=== PATIENT | female | born 1940 | race Caucasian/White ===

== ENCOUNTER 2020-12-13 00:28 | Inpatient (IN) ==
[2020-12-13] MEDS ORDERED: Melatonin 3 MG TABLET PO PRN (04:14)
[2020-12-13] MEDS ORDERED: Naloxone 0.4 MG/ML INJ IVP PRN (04:14)
[2020-12-13] MEDS ORDERED: Ondansetron 4 MG/2 ML VIAL IVP PRN (04:14)
[2020-12-13] MEDS ORDERED: *HR* HYDROcodone/Acet 5/325 mg TABLET PO PRN (04:14)
[2020-12-13] MEDS ORDERED: *HR* Promethazine 25 MG/ML VIAL IM PRN (04:14)
[2020-12-13] MEDS ORDERED: Acetaminophen 325 MG TABLET PO PRN (04:14)
[2020-12-13] MEDS ORDERED: Ringers Solution, Lactated 1,000 ML IVC SCH ×2 (04:15→11:15)
[2020-12-13] MEDS ORDERED: Benzonatate 100 MG CAPSULE PO PRN (04:19)
[2020-12-13] MEDS ORDERED: *HR* Enoxaparin 40 MG/0.4 ML SYRINGE SQ SCH (06:00)
[2020-12-13] MEDS ORDERED: Remdesivir 200 MG in 0.9 % Sodium Chloride 100 ML IVPB ONE ×2 (06:00→10:00)
[2020-12-13] MEDS ORDERED: Dexamethasone Sodium Phos/PF 10 MG/ML VIAL IVP SCH (09:00)
[2020-12-13] MEDS: *HR* Enoxaparin 40 MG/0.4 ML SYRINGE SQ SCH (10:08)
[2020-12-13 14:57] LABS: Troponin I 0.04 ng/mL (< 0.04)
[2020-12-13] MEDS: carvediloL 25 MG TABLET PO SCH (21:03)
[2020-12-14 01:12] LABS: Albumin 3.4 g/dL (3.5-5.7); Bilirubin,Direct 0.2 mg/dL (0.0-0.2); Bilirubin,Indirect 0.3 mg/dL (0.0-1.0); Bilirubin,Total 0.5 mg/dL (0.3-1.0); Globulin 3.5 g/dL (2.4-3.5); Total Protein 6.9 g/dL (6.4-8.9)
[2020-12-14 01:13] LABS: Alanine Aminotransferase 48 Units/L (7-52); Albumin 3.4 g/dL (3.5-5.7); Alkaline Phosphatase 51 Units/L (34-104); Aspartate Amino Transferase 79 Units/L (13-39); BUN/Creatinine Ratio 57 (6-26); Bilirubin,Total 0.5 mg/dL (0.3-1.0); Blood Urea Nitrogen 56 mg/dL (8-23); Calcium 8.8 mg/dL (8.6-10.3); Carbon Dioxide 23 mEq/L (23-29); Chloride 99 mEq/L (98-107); Globulin 3.5 g/dL (2.4-3.5); Glucose 176 mg/dL (70-105); Magnesium 1.8 mg/dL (1.6-2.6); Osmolality,Calculated 296 (280-300); Potassium 3.6 mEq/L (3.5-5.1); Sodium 133 mEq/L (136-145); Total Protein 6.9 g/dL (6.4-8.9); eGFR For African Americans > 60 (> 60); eGFR For Non-African Americans 54 (> 60)
[2020-12-14 01:15] LABS: Fibrinogen 375 mg/dL (169-393); Prothrombin Time 11.2 Seconds (9.4-12.1)
[2020-12-14 01:16] LABS: C-Reactive Protein 18 mg/L (Less than 10); Lactate Dehydrogenase 549 Units/L (140-271)
[2020-12-14 01:18] LABS: Basophils % 0.2 %; Hemoglobin 11.6 g/dL (11.5-15.4); Immature Granulocytes % 1.4 % (0-4); Lymphocytes # 1.1 K/mcL (0.6-4.6); Lymphocytes % 10.2 %; Mean Corpuscular HGB Conc 34.1 g/dL (31.6-35.5); Mean Corpuscular Hemoglobin 29.4 pg (28.0-33.3); Mean Corpuscular Volume 86.3 fL (83.0-100.0); Mean Platelet Volume 10.8 fL (9.4-12.4); Monocytes % 8.8 %; Neutrophils # 8.7 K/mcL (1.6-8.9); Platelet Count 222 K/mcL (140-400); Red Blood Count 3.94 M/mcL (3.82-4.97); Red Cell Distribution Width 13.5 % (11.5-14.5); Segmented Neutrophils % 79.4 %; White Blood Count 10.9 K/mcL (4.3-11.1)
[2020-12-14 01:22] LABS: D-Dimer 3069 ng/mLFEU (0-500)
[2020-12-14 01:40] LABS: Ferritin > 1500 ng/mL (10-120)
[2020-12-14] MEDS: *HR* Enoxaparin 40 MG/0.4 ML SYRINGE SQ SCH (05:23)
[2020-12-14] MEDS ORDERED: Remdesivir 100 MG in 0.9 % Sodium Chloride 100 ML IVPB SCH (06:00)
[2020-12-14] MEDS ORDERED: Furosemide 40 MG/4 ML VIAL IVP STA (08:38)
[2020-12-14] MEDS ORDERED: Furosemide 40 MG/4 ML VIAL IVP ONE (08:40)
[2020-12-14 08:46] LABS: ABG Base Excess 1 mEq/L (-2 to 3); ABG HCO3 25 mEq/L (21-27); ABG Oxygen Saturation 90 % (95-98); ABG PCO2 38 mmHg (35-45); ABG PH 7.42 pH Units (7.32-7.45); ABG PO2 58 mmHg (85-104); ABG TCO2 26 mEq/L (20-26)
[2020-12-14] MEDS: Remdesivir 100 MG in 0.9 % Sodium Chloride 100 ML IVPB SCH (08:46)
[2020-12-14] MEDS: Dexamethasone Sodium Phos/PF 10 MG/ML VIAL IVP SCH (08:46)
[2020-12-14] MEDS: Cholecalciferol (D-3) 1,000 UNIT (25MCG) TABLET PO SCH (08:47)
[2020-12-14] MEDS: carvediloL 25 MG TABLET PO SCH (08:48)
[2020-12-14] MEDS: Aspirin Enteric Coated 81 MG Tablet PO SCH (08:48)
[2020-12-14] MEDS ORDERED: NON-FORMULARY MEDICATION 1 EACH EACH (Ezetimibe [Zetia] 10 MG Tablet) PO SCH (09:00)
[2020-12-14] MEDS: levoFLOXacin 750 MG/150 ML 750 MG/150 ML BAG IVPB SCH (10:15)
[2020-12-14] MEDS: *HR* LORazepam 2 MG/ML VIAL IVP PRN ×2 (10:27→14:28)
[2020-12-14] MEDS ORDERED: *HR* LORazepam 2 MG/ML VIAL IVP PRN (15:21)
[2020-12-14] MEDS ORDERED: Isovue-370 500 ML BOTTLE IVP ONE (15:43)
[2020-12-14] MEDS ORDERED: Dexmedetomidine HCl 400 MCG/100 ML MLS IVC ONE (19:38)
[2020-12-14] MEDS: Dexmedetomidine HCl 400 MCG/100 ML MLS IVC SCH (19:47)
[2020-12-14] MEDS ORDERED: Artificial Tears SOLN 15 ML BOTTLE BOTH EYES PRN (20:20)
[2020-12-14] MEDS ORDERED: *HR* FentaNYL (PF) 100 MCG/2 ML VIAL ONE (20:24)
[2020-12-14] MEDS ORDERED: Midazolam HCl 50 MG/100 ML IV.SOLN IVC SCH (20:30)
[2020-12-14] MEDS ORDERED: FentaNYL (PF) 1,000 MCG/100 ML IV.SOLN IVC SCH (20:30)
[2020-12-14 22:17] LABS: ABG Base Excess 3 mEq/L (-2 to 3); ABG HCO3 25 mEq/L (21-27); ABG Oxygen Saturation 93 % (95-98); ABG PCO2 31 mmHg (35-45); ABG PH 7.51 pH Units (7.32-7.45); ABG PO2 59 mmHg (85-104); ABG TCO2 26 mEq/L (20-26); Blood Gas VT 480 cc
[2020-12-14] MEDS: Norepinephrine 4 MG/254 ML IV.SOLN IVC SCH ×2 (22:42→23:00)
[2020-12-14] MEDS: FentaNYL (PF) 1,000 MCG/100 ML IV.SOLN IVC SCH (22:42)
[2020-12-14] MEDS: Midazolam HCl 50 MG/100 ML IV.SOLN IVC SCH (22:43)
[2020-12-14] MEDS: Cisatracurium 200 MG in 0.9 % Sodium Chloride 180 ML IVC SCH (22:43)
[2020-12-15] MEDS: Artificial Tears SOLN 15 ML BOTTLE BOTH EYES SCH ×7 (00:08→23:06)
[2020-12-15] MEDS: Chlorhexidine Rinse 15 ML MOUTHWASH MM SCH ×3 (00:08→19:56)
[2020-12-15] MEDS: carvediloL 25 MG TABLET PO SCH ×3 (00:09→19:55)
[2020-12-15 04:40] LABS: Basophils % 0.3 %; Hematocrit 35.6 % (35.3-44.9); Hemoglobin 12.1 g/dL (11.5-15.4); Immature Granulocytes % 2.2 % (0-4); Lymphocytes % 8.4 %; Mean Corpuscular Hemoglobin 28.9 pg (28.0-33.3); Mean Corpuscular Volume 85.2 fL (83.0-100.0); Mean Platelet Volume 10.5 fL (9.4-12.4); Monocytes # 1.1 K/mcL (0.0-1.3); Monocytes % 9.2 %; Neutrophils # 9.6 K/mcL (1.6-8.9); Platelet Count 294 K/mcL (140-400); Red Blood Count 4.18 M/mcL (3.82-4.97); Red Cell Distribution Width 13.8 % (11.5-14.5); Segmented Neutrophils % 79.9 %
[2020-12-15 04:43] LABS: Albumin 3.5 g/dL (3.5-5.7); Bilirubin,Total 0.7 mg/dL (0.3-1.0); Calcium 9.4 mg/dL (8.6-10.3); Globulin 3.5 g/dL (2.4-3.5); Potassium 3.5 mEq/L (3.5-5.1)
[2020-12-15 04:44] LABS: Albumin 3.5 g/dL (3.5-5.7); Bilirubin,Direct 0.2 mg/dL (0.0-0.2); Bilirubin,Indirect 0.5 mg/dL (0.0-1.0); Bilirubin,Total 0.7 mg/dL (0.3-1.0); Globulin 3.6 g/dL (2.4-3.5); Total Protein 7.1 g/dL (6.4-8.9)
[2020-12-15 05:05] LABS: ABG Base Excess 1 mEq/L (-2 to 3); ABG HCO3 25 mEq/L (21-27); ABG Oxygen Saturation 97 % (95-98); ABG PCO2 34 mmHg (35-45); ABG PH 7.47 pH Units (7.32-7.45); ABG PO2 83 mmHg (85-104); ABG TCO2 26 mEq/L (20-26); Blood Gas VT 400 cc
[2020-12-15] MEDS: *HR* Enoxaparin 40 MG/0.4 ML SYRINGE SQ SCH ×2 (05:11→19:56)
[2020-12-15] MEDS: Aspirin Enteric Coated 81 MG Tablet PO SCH (08:52)
[2020-12-15] MEDS: Pantoprazole 40 MG VIAL IVP SCH (08:56)
[2020-12-15] MEDS: Dexamethasone Sodium Phos/PF 10 MG/ML VIAL IVP SCH (08:56)
[2020-12-15] MEDS: Furosemide 20 MG/2 ML VIAL IVP SCH (08:56)
[2020-12-15] MEDS: levoFLOXacin 750 MG/150 ML 750 MG/150 ML BAG IVPB SCH (08:57)
[2020-12-15] MEDS ORDERED: Furosemide 40 MG TABLET PO SCH (09:00)
[2020-12-15] MEDS: Cholecalciferol (D-3) 1,000 UNIT (25MCG) TABLET PO SCH (09:03)
[2020-12-15] MEDS: Remdesivir 100 MG in 0.9 % Sodium Chloride 100 ML IVPB SCH (10:50)
[2020-12-15] MEDS: Dexmedetomidine HCl 400 MCG/100 ML MLS IVC SCH (13:11)
[2020-12-15] MEDS: Norepinephrine 4 MG/254 ML IV.SOLN IVC SCH (13:11)
[2020-12-15] MEDS: FentaNYL (PF) 1,000 MCG/100 ML IV.SOLN IVC SCH (23:49)
[2020-12-16 03:33] LABS: ABG Base Excess 3 mEq/L (-2 to 3); ABG HCO3 29 mEq/L (21-27); ABG Oxygen Saturation 88 % (95-98); ABG PCO2 50 mmHg (35-45); ABG PH 7.38 pH Units (7.32-7.45); ABG PO2 56 mmHg (85-104); ABG TCO2 31 mEq/L (20-26); Blood Gas VT 400 cc
[2020-12-16] MEDS: Artificial Tears SOLN 15 ML BOTTLE BOTH EYES SCH ×6 (03:47→23:17)
[2020-12-16 04:47] LABS: Basophils # 0.1 K/mcL (0.0-0.2); Basophils % 0.5 %; Hematocrit 36.8 % (35.3-44.9); Hemoglobin 12.4 g/dL (11.5-15.4); Immature Granulocytes % 4.8 % (0-4); Lymphocytes # 0.9 K/mcL (0.6-4.6); Lymphocytes % 9.4 %; Mean Corpuscular HGB Conc 33.7 g/dL (31.6-35.5); Mean Corpuscular Hemoglobin 29.4 pg (28.0-33.3); Mean Corpuscular Volume 87.2 fL (83.0-100.0); Mean Platelet Volume 10.9 fL (9.4-12.4); Monocytes # 1.1 K/mcL (0.0-1.3); Neutrophils # 7.3 K/mcL (1.6-8.9); Platelet Count 259 K/mcL (140-400); Red Blood Count 4.22 M/mcL (3.82-4.97); Red Cell Distribution Width 13.8 % (11.5-14.5); Segmented Neutrophils % 74.3 %; White Blood Count 9.8 K/mcL (4.3-11.1)
[2020-12-16 04:57] LABS: Albumin 3.4 g/dL (3.5-5.7); Albumin/Globulin Ratio 0.9 (1.1-2.2); Bilirubin,Direct 0.2 mg/dL (0.0-0.2); Bilirubin,Indirect 0.4 mg/dL (0.0-1.0); Bilirubin,Total 0.6 mg/dL (0.3-1.0); Calcium 9.5 mg/dL (8.6-10.3); Globulin 3.6 g/dL (2.4-3.5); Potassium 3.6 mEq/L (3.5-5.1)
[2020-12-16] MEDS: Cisatracurium 200 MG in 0.9 % Sodium Chloride 180 ML IVC SCH ×2 (08:37→19:47)
[2020-12-16] MEDS: Norepinephrine 4 MG/254 ML IV.SOLN IVC SCH ×3 (08:38→19:48)
[2020-12-16] MEDS: Midazolam HCl 50 MG/100 ML IV.SOLN IVC SCH ×2 (08:38→19:48)
[2020-12-16] MEDS: carvediloL 25 MG TABLET PO SCH ×2 (08:39→19:48)
[2020-12-16] MEDS: levoFLOXacin 750 MG/150 ML 750 MG/150 ML BAG IVPB SCH (08:44)
[2020-12-16] MEDS: *HR* Enoxaparin 40 MG/0.4 ML SYRINGE SQ SCH ×2 (08:44→19:46)
[2020-12-16] MEDS: Chlorhexidine Rinse 15 ML MOUTHWASH MM SCH ×2 (08:45→19:46)
[2020-12-16] MEDS: Cholecalciferol (D-3) 1,000 UNIT (25MCG) TABLET PO SCH (08:45)
[2020-12-16] MEDS: Furosemide 20 MG/2 ML VIAL IVP SCH (08:45)
[2020-12-16] MEDS: Aspirin 81 MG TAB.CHEW GTUBE SCH (08:45)
[2020-12-16] MEDS: Pantoprazole 40 MG VIAL IVP SCH (08:45)
[2020-12-16] MEDS: Dexamethasone Sodium Phos/PF 10 MG/ML VIAL IVP SCH (08:45)
[2020-12-16] MEDS: FentaNYL (PF) 1,000 MCG/100 ML IV.SOLN IVC SCH ×3 (08:48→23:43)
[2020-12-16] MEDS: Remdesivir 100 MG in 0.9 % Sodium Chloride 100 ML IVPB SCH (10:44)
[2020-12-16] MEDS: Dexmedetomidine HCl 400 MCG/100 ML MLS IVC SCH (10:45)
[2020-12-16] MEDS: Insulin LISPRO 300 UNITS/3 ML VIAL SUBQ SCH ×2 (17:50→23:45)
[2020-12-17] MEDS: Artificial Tears SOLN 15 ML BOTTLE BOTH EYES SCH ×6 (03:09→23:25)
[2020-12-17] MEDS: Dexmedetomidine HCl 400 MCG/100 ML MLS IVC SCH ×2 (03:10→23:26)
[2020-12-17 04:12] LABS: Albumin 3.2 g/dL (3.5-5.7); Albumin/Globulin Ratio 0.9 (1.1-2.2); Bilirubin,Direct 0.1 mg/dL (0.0-0.2); Bilirubin,Indirect 0.4 mg/dL (0.0-1.0); Bilirubin,Total 0.5 mg/dL (0.3-1.0); Calcium 9.2 mg/dL (8.6-10.3); Globulin 3.5 g/dL (2.4-3.5); Potassium 3.2 mEq/L (3.5-5.1); Total Protein 6.7 g/dL (6.4-8.9)
[2020-12-17 04:36] LABS: Hematocrit 36.8 % (35.3-44.9); Mean Corpuscular HGB Conc 32.6 g/dL (31.6-35.5); Mean Corpuscular Volume 88.9 fL (83.0-100.0); Mean Platelet Volume 10.9 fL (9.4-12.4); Nucleated Red Blood Cells 0.1 /100 WBC (0); Platelet Count 263 K/mcL (140-400); Red Blood Count 4.14 M/mcL (3.82-4.97); Red Cell Distribution Width 13.8 % (11.5-14.5); White Blood Count 14.5 K/mcL (4.3-11.1)
[2020-12-17] MEDS: Insulin LISPRO 300 UNITS/3 ML VIAL SUBQ SCH ×5 (05:05→23:25)
[2020-12-17] MEDS: Norepinephrine 4 MG/254 ML IV.SOLN IVC SCH ×3 (05:06→22:11)
[2020-12-17 05:45] LABS: ABG Base Excess 3 mEq/L (-2 to 3); ABG HCO3 29 mEq/L (21-27); ABG Oxygen Saturation 92 % (95-98); ABG PCO2 50 mmHg (35-45); ABG PH 7.38 pH Units (7.32-7.45); ABG PO2 66 mmHg (85-104); ABG TCO2 31 mEq/L (20-26); Blood Gas Modality ASSIST CONTROL; Blood Gas VT 400 cc
[2020-12-17] MEDS: FentaNYL (PF) 1,000 MCG/100 ML IV.SOLN IVC SCH ×3 (06:04→20:33)
[2020-12-17 07:41] LABS: Lymphocytes # 1.7 K/mcL (0.6-4.6); Monocytes # 0.9 K/mcL (0.0-1.3); Neutrophils # 11.9 K/mcL (1.6-8.9); Platelet Estimate Normal (Normal)
[2020-12-17] MEDS: levoFLOXacin 750 MG/150 ML 750 MG/150 ML BAG IVPB SCH (08:13)
[2020-12-17] MEDS: *HR* Enoxaparin 40 MG/0.4 ML SYRINGE SQ SCH ×2 (08:13→19:42)
[2020-12-17] MEDS: Dexamethasone Sodium Phos/PF 10 MG/ML VIAL IVP SCH (08:14)
[2020-12-17] MEDS: Cholecalciferol (D-3) 1,000 UNIT (25MCG) TABLET PO SCH (08:14)
[2020-12-17] MEDS: Furosemide 20 MG/2 ML VIAL IVP SCH (08:14)
[2020-12-17] MEDS: Aspirin 81 MG TAB.CHEW GTUBE SCH (08:14)
[2020-12-17] MEDS: Chlorhexidine Rinse 15 ML MOUTHWASH MM SCH ×2 (08:15→19:41)
[2020-12-17] MEDS: Pantoprazole 40 MG VIAL IVP SCH (08:15)
[2020-12-17] MEDS: Remdesivir 100 MG in 0.9 % Sodium Chloride 100 ML IVPB SCH (10:30)
[2020-12-17] MEDS: carvediloL 25 MG TABLET PO SCH ×2 (11:18→19:42)
[2020-12-17] MEDS ORDERED: Potassium Chloride Elixir 20 MEQ/15 ML UDC GTUBE ONE ×4 (11:29→16:27)
[2020-12-17] MEDS: Cisatracurium 200 MG in 0.9 % Sodium Chloride 180 ML IVC SCH (22:11)
[2020-12-17] MEDS: Midazolam HCl 50 MG/100 ML IV.SOLN IVC SCH (22:11)
[2020-12-18] MEDS: FentaNYL (PF) 1,000 MCG/100 ML IV.SOLN IVC SCH ×4 (03:46→19:59)
[2020-12-18] MEDS: Insulin LISPRO 300 UNITS/3 ML VIAL SUBQ SCH ×6 (04:28→23:32)
[2020-12-18] MEDS: Artificial Tears SOLN 15 ML BOTTLE BOTH EYES SCH ×6 (04:28→23:32)
[2020-12-18 06:13] LABS: Basophils # 0.1 K/mcL (0.0-0.2); Basophils % 0.6 %; Hematocrit 37.5 % (35.3-44.9); Hemoglobin 12.2 g/dL (11.5-15.4); Immature Granulocytes % 4.9 % (0-4); Lymphocytes # 0.8 K/mcL (0.6-4.6); Lymphocytes % 4.1 %; Mean Corpuscular HGB Conc 32.5 g/dL (31.6-35.5); Mean Corpuscular Hemoglobin 29.4 pg (28.0-33.3); Mean Corpuscular Volume 90.4 fL (83.0-100.0); Mean Platelet Volume 11.3 fL (9.4-12.4); Monocytes # 0.8 K/mcL (0.0-1.3); Monocytes % 4.1 %; Platelet Count 260 K/mcL (140-400); Red Blood Count 4.15 M/mcL (3.82-4.97); Red Cell Distribution Width 13.7 % (11.5-14.5); Segmented Neutrophils % 86.3 %; White Blood Count 19.7 K/mcL (4.3-11.1)
[2020-12-18 06:25] LABS: ABG Base Excess 2 mEq/L (-2 to 3); ABG HCO3 27 mEq/L (21-27); ABG Oxygen Saturation 89 % (95-98); ABG PCO2 45 mmHg (35-45); ABG PH 7.39 pH Units (7.32-7.45); ABG PO2 57 mmHg (85-104); ABG TCO2 29 mEq/L (20-26); Blood Gas Modality ASSIST CONTROL; Blood Gas VT 400 cc
[2020-12-18 06:30] LABS: Alanine Aminotransferase 21 Units/L (7-52); Albumin 3.1 g/dL (3.5-5.7); Albumin/Globulin Ratio 0.9 (1.1-2.2); Alkaline Phosphatase 48 Units/L (34-104); Aspartate Amino Transferase 18 Units/L (13-39); BUN/Creatinine Ratio 66 (6-26); Bilirubin,Total 0.2 mg/dL (0.3-1.0); Blood Urea Nitrogen 60 mg/dL (8-23); Calcium 9.2 mg/dL (8.6-10.3); Carbon Dioxide 29 mEq/L (23-29); Chloride 105 mEq/L (98-107); Globulin 3.3 g/dL (2.4-3.5); Glucose 284 mg/dL (70-105); Osmolality,Calculated 319 (280-300); Sodium 141 mEq/L (136-145); Total Protein 6.4 g/dL (6.4-8.9); eGFR For African Americans > 60 (> 60); eGFR For Non-African Americans 60 (> 60)
[2020-12-18 06:31] LABS: Albumin 3.1 g/dL (3.5-5.7); Albumin/Globulin Ratio 0.9 (1.1-2.2); Bilirubin,Direct 0.1 mg/dL (0.0-0.2); Bilirubin,Indirect 0.4 mg/dL (0.0-1.0); Bilirubin,Total 0.5 mg/dL (0.3-1.0); Globulin 3.3 g/dL (2.4-3.5); Total Protein 6.4 g/dL (6.4-8.9)
[2020-12-18] MEDS: Norepinephrine 4 MG/254 ML IV.SOLN IVC SCH ×3 (07:49→23:16)
[2020-12-18] MEDS: *HR* Enoxaparin 40 MG/0.4 ML SYRINGE SQ SCH ×2 (08:11→19:59)
[2020-12-18] MEDS: Dexamethasone Sodium Phos/PF 10 MG/ML VIAL IVP SCH (08:12)
[2020-12-18] MEDS: Chlorhexidine Rinse 15 ML MOUTHWASH MM SCH ×2 (08:12→20:00)
[2020-12-18] MEDS: Cholecalciferol (D-3) 1,000 UNIT (25MCG) TABLET PO SCH (08:12)
[2020-12-18] MEDS: Pantoprazole 40 MG VIAL IVP SCH (08:12)
[2020-12-18] MEDS: Aspirin 81 MG TAB.CHEW GTUBE SCH (08:13)
[2020-12-18] MEDS: Furosemide 20 MG/2 ML VIAL IVP SCH (08:13)
[2020-12-18] MEDS: levoFLOXacin 750 MG/150 ML 750 MG/150 ML BAG IVPB SCH (08:44)
[2020-12-18 09:18] LABS: C-Reactive Protein 12 mg/L (Less than 10)
[2020-12-18] MEDS: carvediloL 25 MG TABLET PO SCH ×2 (11:24→20:00)
[2020-12-18] MEDS: Midazolam HCl 50 MG/100 ML IV.SOLN IVC SCH (15:44)
[2020-12-18] MEDS: Cisatracurium 200 MG in 0.9 % Sodium Chloride 180 ML IVC SCH (18:42)
[2020-12-18] MEDS: Dexmedetomidine HCl 400 MCG/100 ML MLS IVC SCH (19:58)
[2020-12-19 00:09] VITALS: TEMP 97.4
[2020-12-19 01:03] VITALS: O2SAT 78
[2020-12-19 02:03] VITALS: BP 96/49; PULSE 98
== END 2020-12-19 02:40 | disposition expired | DRG 207 ==
LOC: 2ANU → SUATTDRO 03:23 → 2NNU 12-14 17:54 → ICNU 12-14 22:35
PROVIDERS: ADMIT Family Medicine; ATTEND Pharmacist